=== PATIENT | male | born 1935 | race African-American/Black ===

== ENCOUNTER 2018-05-19 18:07 | Inpatient (IN) | payer MEDICARE, MEDICAID ==
[~2018-05-19] VITALS: Ht 182.9 cm; Wt 64.9 kg
[2018-05-19] MEDS ORDERED: ASPIRIN 81MG TABLET PO ONE (18:45)
[2018-05-19 18:57] LABS: BASOPHILS % 1.2 % (0.0-2.0); EOSINOPHILS % 6.7 % (0.0-5.0); HEMATOCRIT. 38.2 % (42.0-52.0); HEMOGLOBIN. 12.9 g/dL (14.0-18.0); MEAN CORPUSCULAR HEMOGLOBIN 31.6 pg (28.0-32.0); MEAN CORPUSCULAR VOLUME 93.6 fL (80.0-94.0); MONOCYTES % 10.2 % (2.0-8.0); NEUTROPHILS % 41.9 % (40.0-76.0); PLATELET 146 x1000/uL (130-400); RED BLOOD CELL COUNT 4.08 mill/uL (4.7-6.1); RED CELL DISTRIBUTION WIDTH 14.6 % (11.6-14.6)
[2018-05-19 19:03] LABS: CHLORIDE 107 mEq/L (98-107)
[2018-05-19 19:05] LABS: INR 1.6; PARTIAL THROMBOPLASTIN TIME 36.6 sec (23.4-31.0); PROTHROMBIN TIME 15.8 sec (9.6-11.0)
[2018-05-19] MEDS ORDERED: SODIUM CHLORIDE 0.9% 500 ML IV ONE (23:45)
[2018-05-20] MEDS ORDERED: CLONIDINE 0.1MG TABLET PO PRN (04:00)
[2018-05-20 04:59] VITALS: BP 165/108
[2018-05-20 05:07] VITALS: BP 165/108
[2018-05-20] MEDS ORDERED: HYDROCODONE/ACETAMINOPHEN 5/325MG TABLET PO PRN (06:30)
[2018-05-20] MEDS ORDERED: ACETAMINOPHEN 325MG TABLET PO PRN (06:30)
[2018-05-20] MEDS ORDERED: IPRATROPIUM/ALBUTEROL 0.5-3(2.5)MG/3ML NEB INH PRN (06:30)
[2018-05-20] MEDS ORDERED: MAGNESIUM/ALUMINUM HYDROXIDE/SIMETHICONE 30ML UDC PO PRN (06:30)
[2018-05-20] MEDS ORDERED: DOCUSATE SODIUM 100MG CAPSULE PO PRN (06:30)
[2018-05-20] MEDS ORDERED: ONDANSETRON HCL 4MG/2ML INJ IV PRN (06:30)
[2018-05-20] MEDS: AMLODIPINE 5MG TABLET PO SCH (09:45)
[2018-05-20 09:46] LABS: TOTAL IRON BINDING CAPACITY 249 ug/dL (250-450)
[2018-05-20] MEDS: ENOXAPARIN 30MG/0.3ML SYR SUBCUT SCH (10:30)
[2018-05-20] MEDS: PANTOPRAZOLE SODIUM 40 MG/VIAL IV SCH (10:30)
[2018-05-20 12:14] LABS: HEMATOCRIT 34.9 % (42.0-52.0); HEMOGLOBIN 11.6 g/dL (14.0-18.0); MEAN CORPUSCULAR VOLUME 93.2 fL (80.0-94.0); PLATELET 129 x1000/uL (130-400); RED BLOOD CELL COUNT 3.74 mill/uL (4.7-6.1); RED CELL DISTRIBUTION WIDTH 14.8 % (11.6-14.6)
[2018-05-20 12:16] LABS: CHLORIDE 110 mEq/L (98-107)
[2018-05-20] MEDS: HYDRALAZINE HCL 25MG TABLET PO SCH ×2 (13:09→21:56)
[2018-05-20] MEDS: SODIUM CHLORIDE 0.9% 1,000 ML IV SCH (17:39)
[2018-05-20 20:00] VITALS: BP 156/89
[2018-05-20 20:59] VITALS: BP 122/70
[2018-05-20 21:00] VITALS: BP 125/71
[2018-05-21 00:40] VITALS: BP 159/91
[2018-05-21] MEDS: DIPHENHYDRAMINE 50MG/ML VIAL IV PRN ×2 (01:00→21:08)
[2018-05-21] MEDS: CLONIDINE 0.1MG TABLET PO PRN ×2 (01:00→21:08)
[2018-05-21] MEDS: SODIUM CHLORIDE 0.9% 1,000 ML IV SCH ×2 (02:30→21:09)
[2018-05-21 04:00] VITALS: BP 155/81
[2018-05-21] MEDS: HYDRALAZINE HCL 25MG TABLET PO SCH ×3 (06:26→21:08)
[2018-05-21 06:46] LABS: BASOPHILS % 1.3 % (0.0-2.0); EOSINOPHILS % 7.1 % (0.0-5.0); HEMOGLOBIN. 13.1 g/dL (14.0-18.0); MEAN CORPUSCULAR HEMOGLOBIN 31.1 pg (28.0-32.0); MEAN CORPUSCULAR VOLUME 93.1 fL (80.0-94.0); MEAN PLATELET VOLUME 9.1 fl (7.4-10.4); MONOCYTES % 10.3 % (2.0-8.0); NEUTROPHILS % 35.3 % (40.0-76.0); PLATELET 149 x1000/uL (130-400); RED BLOOD CELL COUNT 4.19 mill/uL (4.7-6.1); RED CELL DISTRIBUTION WIDTH 14.8 % (11.6-14.6)
[2018-05-21 07:03] LABS: CHLORIDE 107 mEq/L (98-107)
[2018-05-21 07:17] LABS: LDL CHOLESTEROL 111 mg/dL (5-100)
[2018-05-21 07:19] LABS: PHOSPHORUS 2.7 mg/dL (2.5-4.9)
[2018-05-21 07:20] LABS: HDL CHOLESTEROL 52 mg/dL (40-59)
[2018-05-21 07:52] VITALS: BP 156/89
[2018-05-21] MEDS: AMLODIPINE 5MG TABLET PO SCH (09:37)
[2018-05-21] MEDS: PANTOPRAZOLE SODIUM 40 MG/VIAL IV SCH (09:37)
[2018-05-21] MEDS: ENOXAPARIN 30MG/0.3ML SYR SUBCUT SCH (09:38)
[2018-05-21 11:18] VITALS: BP 141/81
[2018-05-21 15:53] VITALS: BP 183/99
[2018-05-21 17:20] LABS: ETHANOL BLOOD < 10 mg/dL
[2018-05-21 17:26] LABS: T4 FREE 0.89 ng/dL (0.76-1.46)
[2018-05-21 17:37] LABS: FOLIC ACID (FOLATE) SERUM 12.1 ng/mL (>5.38)
[2018-05-21 17:59] LABS: CLARITY URINE CLEAR (CLEAR); COLOR URINE YELLOW (YELLOW); KETONES URINE NEGATIVE (NEGATIVE); LEUKOCYTE ESTERASE URINE NEGATIVE (NEGATIVE); NITRITE URINE NEGATIVE (NEGATIVE); OCCULT BLOOD URINE NEGATIVE (NEGATIVE); PROTEIN URINE NEGATIVE (NEGATIVE); SPECIFIC GRAVITY URINE 1.016 (1.005-1.030); UROBILINOGEN URINE 0.2 E.U./dL (0.2-1.0)
[2018-05-21 18:11] LABS: *AMPHETAMINES SCREEN URINE NEGATIVE (NEGATIVE); *BARBITURATES SCREEN URINE NEGATIVE (NEGATIVE); *BENZODIAZEPINES SCREEN URINE NEGATIVE (NEGATIVE); *COCAINE SCREEN URINE NEGATIVE (NEGATIVE); METHADONE URINE SCREEN NEGATIVE (NEGATIVE); OPIATES URINE SCREEN NEGATIVE (NEGATIVE)
[2018-05-21 18:12] LABS: CANNABINOID URINE SCREEN NEGATIVE (NEGATIVE); PHENCYCLIDINE URINE SCREEN NEGATIVE (NEGATIVE)
[2018-05-21 20:00] VITALS: BP_SYST 130; BP_SYST 149; BP_DIAS 95; BP_DIAS 98
[2018-05-21] MEDS: QUETIAPINE FUMARATE 25MG TABLET PO SCH (21:08)
[2018-05-22 00:29] VITALS: BP 159/102
[2018-05-22 04:00] VITALS: BP 169/109
[2018-05-22] MEDS: HYDRALAZINE HCL 25MG TABLET PO SCH (06:28)
[2018-05-22] MEDS: CLONIDINE 0.1MG TABLET PO PRN (06:28)
[2018-05-22 07:20] LABS: BASOPHILS % 1.1 % (0.0-2.0); EOSINOPHILS % 6.5 % (0.0-5.0); HEMATOCRIT. 38.6 % (42.0-52.0); HEMOGLOBIN. 13.1 g/dL (14.0-18.0); LYMPHOCYTES % 36.4 % (20.0-50.0); MEAN CORPUSCULAR HEMOGLOBIN 31.1 pg (28.0-32.0); MEAN CORPUSCULAR VOLUME 91.9 fL (80.0-94.0); MEAN PLATELET VOLUME 9.2 fl (7.4-10.4); PLATELET 138 x1000/uL (130-400); RED CELL DISTRIBUTION WIDTH 14.3 % (11.6-14.6)
[2018-05-22 08:00] VITALS: BP 142/94
[2018-05-22] MEDS: AMLODIPINE 5MG TABLET PO SCH (08:55)
[2018-05-22] MEDS: QUETIAPINE FUMARATE 25MG TABLET PO SCH (08:56)
[2018-05-22] MEDS ORDERED: ENOXAPARIN 40MG/0.4ML SYR SUBCUT SCH (09:00)
[2018-05-22] MEDS ORDERED: FAMOTIDINE 20MG TABLET PO SCH (09:00)
[2018-05-22 11:48] VITALS: BP 119/75
[2018-05-22 12:01] VITALS: BP 119/75
== END 2018-05-22 15:16 | disposition home health service (06) | DRG 682 ==
LOC: EDBD 18:07 → ER 18:07 → ENRESERV 05-20 03:24 → 6WST 05-20 04:32
PROVIDERS: ADMIT Family Medicine Adult Medicine; ATTEND Family Medicine Adult Medicine
PROC: 4A00X4Z Measurement of Central Nervous Electrical Activity, External Approach (ICD-10-PCS; principal; 2018-05-22)
DX: N17.9 Acute kidney failure, unspecified (principal); G92 Toxic encephalopathy; D68.9 Coagulation defect, unspecified; E44.0 Moderate protein-calorie malnutrition; Z68.1 Body mass index [BMI] 19.9 or less, adult; R07.89 Other chest pain; I48.91 Unspecified atrial fibrillation; D64.9 Anemia, unspecified; E78.00 Pure hypercholesterolemia, unspecified; N18.9 Chronic kidney disease, unspecified; E78.5 Hyperlipidemia, unspecified; F03.90 Unspecified dementia, unspecified severity, without behavioral disturbance, psychotic disturbance, mood disturbance, and anxiety; I12.9 Hypertensive chronic kidney disease with stage 1 through stage 4 chronic kidney disease, or unspecified chronic kidney disease; I25.10 Atherosclerotic heart disease of native coronary artery without angina pectoris; Z82.49 Family history of ischemic heart disease and other diseases of the circulatory system; Z86.73 Personal history of transient ischemic attack (TIA), and cerebral infarction without residual deficits
CPT/HCPCS: 36415; 71045; 80048; 80061; 80305; 80320; 82140; 82607; 82746; 83036; 83540; 83550; 83735; 83880; 84100; 84439; 84443; 84481; 84484; 85027; 87077; 87186; 93005; 93306; 93970; 96360; 96361; 97162; 97166; 99285; C9113; J1200; J1650; J7030; J7040; G0480

== ENCOUNTER 2018-05-22 21:24 | Inpatient (IN) | payer MEDICARE, MEDICAID ==
[~2018-05-22] VITALS: Ht 182.9 cm; Wt 64.6 kg
[2018-05-22 22:49] LABS: CHLORIDE 104 mEq/L (98-107)
[2018-05-22 22:50] LABS: BASOPHILS % 0.7 % (0.0-2.0); EOSINOPHILS % 3.2 % (0.0-5.0); HEMATOCRIT. 38.8 % (42.0-52.0); HEMOGLOBIN. 13.1 g/dL (14.0-18.0); LYMPHOCYTES % 17.1 % (20.0-50.0); MEAN CORPUSCULAR HEMOGLOBIN 31.5 pg (28.0-32.0); MEAN CORPUSCULAR VOLUME 93.3 fL (80.0-94.0); MEAN PLATELET VOLUME 8.8 fl (7.4-10.4); MONOCYTES % 9.5 % (2.0-8.0); NEUTROPHILS % 69.5 % (40.0-76.0); PLATELET 136 x1000/uL (130-400); RED BLOOD CELL COUNT 4.16 mill/uL (4.7-6.1); RED CELL DISTRIBUTION WIDTH 14.8 % (11.6-14.6)
[2018-05-23] VITALS (8 sets, daily range): BP systolic 115–182; BP diastolic 65–103
[2018-05-23] MEDS ORDERED: MAGNESIUM/ALUMINUM HYDROXIDE/SIMETHICONE 30ML UDC PO PRN (00:30)
[2018-05-23] MEDS ORDERED: ENOXAPARIN 40MG/0.4ML SYR SUBCUT SCH (00:30)
[2018-05-23] MEDS ORDERED: ONDANSETRON HCL 4MG/2ML INJ IV PRN (00:30)
[2018-05-23] MEDS ORDERED: HYDROCODONE/ACETAMINOPHEN 5/325MG TABLET PO PRN (00:30)
[2018-05-23] MEDS ORDERED: LEVOFLOXACIN 500MG PREMIX 100 ML IV SCH ×2 (00:30→02:00)
[2018-05-23] MEDS: SODIUM CHLORIDE 0.9% 1,000 ML IV SCH ×2 (02:53→20:22)
[2018-05-23] MEDS: THIAMINE HCL 100MG TABLET PO SCH (08:46)
[2018-05-23] MEDS: FERROUS SULFATE 325MG TABLET PO SCH (08:46)
[2018-05-23] MEDS: ENOXAPARIN 30MG/0.3ML SYR SUBCUT SCH (08:47)
[2018-05-23] MEDS: CLONIDINE 0.1MG TABLET PO PRN ×2 (09:39→21:38)
[2018-05-23 11:59] LABS: BASOPHILS % 1.5 % (0.0-2.0); HEMATOCRIT. 38.3 % (42.0-52.0); HEMOGLOBIN. 12.9 g/dL (14.0-18.0); LYMPHOCYTES % 25.7 % (20.0-50.0); MEAN CORPUSCULAR HEMOGLOBIN 31.6 pg (28.0-32.0); MEAN CORPUSCULAR VOLUME 93.6 fL (80.0-94.0); MEAN PLATELET VOLUME 9.7 fl (7.4-10.4); MONOCYTES % 8.5 % (2.0-8.0); NEUTROPHILS % 57.3 % (40.0-76.0); PLATELET 130 x1000/uL (130-400); RED CELL DISTRIBUTION WIDTH 14.9 % (11.6-14.6)
[2018-05-23 17:29] LABS: CLARITY URINE CLEAR (CLEAR); COLOR URINE YELLOW (YELLOW); KETONES URINE NEGATIVE (NEGATIVE); LEUKOCYTE ESTERASE URINE NEGATIVE (NEGATIVE); NITRITE URINE NEGATIVE (NEGATIVE); OCCULT BLOOD URINE NEGATIVE (NEGATIVE); PH URINE 5.5 (4.5-8.0); PROTEIN URINE TRACE (NEGATIVE); SPECIFIC GRAVITY URINE 1.023 (1.005-1.030)
[2018-05-23] MEDS: LEVOFLOXACIN 250MG PREMIX 50 ML IV SCH (20:21)
[2018-05-24] VITALS (7 sets, daily range): BP systolic 108–173; BP diastolic 60–93
[2018-05-24 06:04] LABS: EOSINOPHILS % 5.1 % (0.0-5.0); HEMATOCRIT. 37.6 % (42.0-52.0); HEMOGLOBIN. 12.9 g/dL (14.0-18.0); LYMPHOCYTES % 23.5 % (20.0-50.0); MEAN CORPUSCULAR HEMOGLOBIN 31.9 pg (28.0-32.0); MEAN CORPUSCULAR VOLUME 92.8 fL (80.0-94.0); MEAN PLATELET VOLUME 9.2 fl (7.4-10.4); MONOCYTES % 10.9 % (2.0-8.0); NEUTROPHILS % 59.5 % (40.0-76.0); PLATELET 133 x1000/uL (130-400); RED BLOOD CELL COUNT 4.05 mill/uL (4.7-6.1); RED CELL DISTRIBUTION WIDTH 14.4 % (11.6-14.6)
[2018-05-24 06:39] LABS: PHOSPHORUS 2.2 mg/dL (2.5-4.9)
[2018-05-24] MEDS: ENOXAPARIN 30MG/0.3ML SYR SUBCUT SCH (09:44)
[2018-05-24] MEDS: THIAMINE HCL 100MG TABLET PO SCH (09:44)
[2018-05-24] MEDS: FERROUS SULFATE 325MG TABLET PO SCH (09:44)
[2018-05-24] MEDS: SODIUM CHLORIDE 0.9% 1,000 ML IV SCH (09:45)
[2018-05-24] MEDS: HALOPERIDOL LACTATE 5MG/ML VIAL IM PRN (10:29)
[2018-05-24] MEDS: CLONIDINE 0.1MG TABLET PO PRN (17:13)
[2018-05-24] MEDS: QUETIAPINE FUMARATE 25MG TABLET PO SCH (20:36)
[2018-05-24] MEDS: LEVOFLOXACIN 250MG PREMIX 50 ML IV SCH (20:36)
[2018-05-25] VITALS: BP 138/76
[2018-05-25 04:00] VITALS: BP 142/79
[2018-05-25 07:58] VITALS: BP 145/85
[2018-05-25] MEDS: ENOXAPARIN 40MG/0.4ML SYR SUBCUT SCH (09:16)
[2018-05-25] MEDS: FERROUS SULFATE 325MG TABLET PO SCH (09:16)
[2018-05-25] MEDS: QUETIAPINE FUMARATE 25MG TABLET PO SCH ×2 (09:16→20:27)
[2018-05-25] MEDS: THIAMINE HCL 100MG TABLET PO SCH (09:16)
[2018-05-25] MEDS: HALOPERIDOL LACTATE 5MG/ML VIAL IM PRN (11:15)
[2018-05-25 11:41] VITALS: BP 117/70
[2018-05-25 16:02] VITALS: BP 128/71
[2018-05-25 20:00] VITALS: BP 132/83
[2018-05-25] MEDS: LEVOFLOXACIN 250MG PREMIX 50 ML IV SCH (20:27)
[2018-05-26] VITALS: BP 163/93
[2018-05-26] MEDS: CLONIDINE 0.1MG TABLET PO PRN ×2 (00:07→18:05)
[2018-05-26 04:00] VITALS: BP 173/103
[2018-05-26 06:53] LABS: HEMATOCRIT. 34.9 % (42.0-52.0); HEMOGLOBIN. 11.8 g/dL (14.0-18.0); MEAN CORPUSCULAR HEMOGLOBIN 31.4 pg (28.0-32.0); MEAN CORPUSCULAR VOLUME 92.9 fL (80.0-94.0); MEAN PLATELET VOLUME 9.2 fl (7.4-10.4); PLATELET 124 x1000/uL (130-400); RED BLOOD CELL COUNT 3.76 mill/uL (4.7-6.1); RED CELL DISTRIBUTION WIDTH 14.2 % (11.6-14.6)
[2018-05-26 07:41] LABS: PHOSPHORUS 2.7 mg/dL (2.5-4.9)
[2018-05-26 08:00] VITALS: BP 151/95
[2018-05-26] MEDS: FERROUS SULFATE 325MG TABLET PO SCH (08:57)
[2018-05-26] MEDS: THIAMINE HCL 100MG TABLET PO SCH (08:57)
[2018-05-26] MEDS: QUETIAPINE FUMARATE 25MG TABLET PO SCH ×2 (08:57→20:45)
[2018-05-26] MEDS: ENOXAPARIN 40MG/0.4ML SYR SUBCUT SCH (08:58)
[2018-05-26 10:18] LABS: PLATELET ESTIMATE NORMAL
[2018-05-26 12:00] VITALS: BP 154/99
[2018-05-26 16:00] VITALS: BP 166/97
[2018-05-26 20:00] VITALS: BP 143/68
[2018-05-26] MEDS: LEVOFLOXACIN 250MG PREMIX 50 ML IV SCH (20:45)
[2018-05-27] VITALS: BP 141/57
[2018-05-27 04:00] VITALS: BP 139/61
[2018-05-27 08:00] VITALS: BP 147/82
[2018-05-27] MEDS: QUETIAPINE FUMARATE 25MG TABLET PO SCH ×2 (09:23→20:07)
[2018-05-27] MEDS: THIAMINE HCL 100MG TABLET PO SCH (09:23)
[2018-05-27] MEDS: ENOXAPARIN 40MG/0.4ML SYR SUBCUT SCH (09:23)
[2018-05-27] MEDS: FERROUS SULFATE 325MG TABLET PO SCH (09:23)
[2018-05-27 11:46] VITALS: BP 111/60
[2018-05-27 16:00] VITALS: BP 160/88
[2018-05-27] MEDS: ACETAMINOPHEN 325MG TABLET PO PRN (17:34)
[2018-05-27 20:00] VITALS: BP 140/58
[2018-05-27] MEDS: LEVOFLOXACIN 250MG TABLET PO SCH (20:07)
[2018-05-27] MEDS: HALOPERIDOL LACTATE 5MG/ML VIAL IM PRN (22:48)
[2018-05-28] VITALS: BP 162/93
[2018-05-28] MEDS: ACETAMINOPHEN 325MG TABLET PO PRN (00:23)
[2018-05-28] MEDS: CLONIDINE 0.1MG TABLET PO PRN (00:24)
[2018-05-28 04:00] VITALS: BP 124/71
[2018-05-28 08:00] VITALS: BP 107/69
[2018-05-28] MEDS: THIAMINE HCL 100MG TABLET PO SCH (08:51)
[2018-05-28] MEDS: QUETIAPINE FUMARATE 25MG TABLET PO SCH ×2 (08:51→21:17)
[2018-05-28] MEDS: ENOXAPARIN 40MG/0.4ML SYR SUBCUT SCH (08:51)
[2018-05-28] MEDS: FERROUS SULFATE 325MG TABLET PO SCH (08:51)
[2018-05-28 12:00] VITALS: BP 116/63
[2018-05-28 16:00] VITALS: BP 131/7
[2018-05-28 20:00] VITALS: BP 147/81
[2018-05-28] MEDS: LEVOFLOXACIN 250MG TABLET PO SCH (21:17)
[2018-05-29 00:07] VITALS: BP 111/69
[2018-05-29 03:30] VITALS: BP 141/96
[2018-05-29] MEDS: CLONIDINE 0.1MG TABLET PO PRN (04:00)
[2018-05-29] MEDS: HALOPERIDOL LACTATE 5MG/ML VIAL IM PRN (04:00)
[2018-05-29 06:04] LABS: BASOPHILS % 0.7 % (0.0-2.0); EOSINOPHILS % 3.4 % (0.0-5.0); HEMATOCRIT. 35.2 % (42.0-52.0); LYMPHOCYTES % 17.6 % (20.0-50.0); MEAN CORPUSCULAR HEMOGLOBIN 31.8 pg (28.0-32.0); MEAN CORPUSCULAR VOLUME 93.1 fL (80.0-94.0); MEAN PLATELET VOLUME 9.5 fl (7.4-10.4); MONOCYTES % 14.5 % (2.0-8.0); NEUTROPHILS % 63.8 % (40.0-76.0); PLATELET 143 x1000/uL (130-400); RED BLOOD CELL COUNT 3.78 mill/uL (4.7-6.1); RED CELL DISTRIBUTION WIDTH 14.2 % (11.6-14.6)
[2018-05-29 07:59] LABS: PHOSPHORUS 2.8 mg/dL (2.5-4.9)
[2018-05-29] MEDS: ENOXAPARIN 40MG/0.4ML SYR SUBCUT SCH (09:00)
[2018-05-29] MEDS: FERROUS SULFATE 325MG TABLET PO SCH (09:11)
[2018-05-29] MEDS: QUETIAPINE FUMARATE 25MG TABLET PO SCH ×2 (09:11→21:13)
[2018-05-29] MEDS: THIAMINE HCL 100MG TABLET PO SCH (09:11)
[2018-05-29 18:12] VITALS: BP 126/73
[2018-05-29] MEDS: LEVOFLOXACIN 250MG TABLET PO SCH (21:13)
[2018-05-30 14:08] LABS: *HIV-1 RNA BY PCR <20 copies/mL (.)
== END 2018-05-29 21:40 | DRG 91 ==
LOC: ER 21:24 → 5WST 23:38 → EDBEDREQ 23:41 → EDBEDREQTM 23:41 → ENRESERV 23:57
PROVIDERS: ADMIT Internal Medicine Nephrology; ATTEND Internal Medicine Nephrology
DX: G92 Toxic encephalopathy (principal); N17.0 Acute kidney failure with tubular necrosis; E44.1 Mild protein-calorie malnutrition; Z68.1 Body mass index [BMI] 19.9 or less, adult; I48.91 Unspecified atrial fibrillation; F03.90 Unspecified dementia, unspecified severity, without behavioral disturbance, psychotic disturbance, mood disturbance, and anxiety; D63.1 Anemia in chronic kidney disease; I12.9 Hypertensive chronic kidney disease with stage 1 through stage 4 chronic kidney disease, or unspecified chronic kidney disease; K72.90 Hepatic failure, unspecified without coma; E78.00 Pure hypercholesterolemia, unspecified; N18.3 Chronic kidney disease, stage 3 (moderate); Z78.1 Physical restraint status; Z86.73 Personal history of transient ischemic attack (TIA), and cerebral infarction without residual deficits
CPT/HCPCS: 36415; 70551; 71045; 80048; 80076; 82140; 83520; 83735; 83880; 84100; 84153; 84484; 86592; 87536; 93005; 93306; 93880; 97116; 97162; 97530; 99285; J1630; J1650; J1956; G0103

== ENCOUNTER 2018-08-15 18:34 | Emergency (ER) | payer MEDICARE, MEDICAID ==
[~2018-08-15] VITALS: Ht 167.6 cm; Wt 67.0 kg
[2018-08-15] MEDS ORDERED: ACETAMINOPHEN 500MG TABLET PO ONE (23:15)
[2018-08-16 00:57] LABS: BASOPHILS % 1.3 % (0.0-2.0); EOSINOPHILS % 7.3 % (0.0-5.0); HEMATOCRIT. 35.5 % (42.0-52.0); HEMOGLOBIN. 12.2 g/dL (14.0-18.0); LYMPHOCYTES % 31.9 % (20.0-50.0); MEAN CORPUSCULAR HEMOGLOBIN 31.9 pg (28.0-32.0); MEAN CORPUSCULAR VOLUME 93.2 fL (80.0-94.0); MONOCYTES % 11.8 % (2.0-8.0); NEUTROPHILS % 47.7 % (40.0-76.0); PLATELET 138 x1000/uL (130-400); RED BLOOD CELL COUNT 3.81 mill/uL (4.7-6.1); RED CELL DISTRIBUTION WIDTH 15.7 % (11.6-14.6)
[2018-08-16] MEDS ORDERED: HYDROCODONE/ACETAMINOPHEN 5/325MG TABLET PO ONE (01:00)
[2018-08-16 01:05] LABS: CHLORIDE 111 mEq/L (98-107); PROTHROMBIN TIME 10.6 sec (9.6-11.0)
[2018-08-16] MEDS ORDERED: HYDRALAZINE 20MG/ML VIAL IV ONE (03:30)
[2018-08-16 05:45] VITALS: BP 144/87
== END 2018-08-16 06:00 | disposition home or self-care (01) ==
LOC: ER 18:34 → EDBD 18:34 → ER 08-16 06:00
DX: R07.81 Pleurodynia (principal); I10 Essential (primary) hypertension
CPT/HCPCS: 36415; 70450; 71101; 74176; 80053; 83690; 85025; 85610; 96374; 99284; J0360

== ENCOUNTER 2019-03-08 18:58 | Emergency (ER) | payer MEDICARE, MEDICAID ==
[~2019-03-08] VITALS: Ht 182.9 cm; Wt 68.0 kg
[2019-03-08 21:34] VITALS: BP 126/89
== END 2019-03-08 21:36 | disposition home or self-care (01) ==
LOC: ER 19:16
DX: R45.1 Restlessness and agitation (principal); I12.9 Hypertensive chronic kidney disease with stage 1 through stage 4 chronic kidney disease, or unspecified chronic kidney disease; N18.9 Chronic kidney disease, unspecified; F03.90 Unspecified dementia, unspecified severity, without behavioral disturbance, psychotic disturbance, mood disturbance, and anxiety; I69.351 Hemiplegia and hemiparesis following cerebral infarction affecting right dominant side
CPT/HCPCS: 99283

== ENCOUNTER 2019-05-13 15:06 | Inpatient (IN) | payer MEDICARE, MEDICAID ==
[~2019-05-13] VITALS: Ht 182.9 cm; Wt 72.3 kg
[2019-05-13] MEDS ORDERED: AMLO10TA80 PO (15:19)
[2019-05-13] MEDS ORDERED: NA P230E RC (15:19)
[2019-05-13] MEDS ORDERED: MOM PO (15:19)
[2019-05-13] MEDS ORDERED: BISA-81 PO (15:19)
[2019-05-13] MEDS ORDERED: LATA2.5D2 EACHEYE (15:19)
[2019-05-13] MEDS ORDERED: CLON-457 PO (15:19)
[2019-05-13] MEDS ORDERED: ATOR40TA70 PO (15:19)
[2019-05-13] MEDS ORDERED: SODIUM CHLORIDE 0.9% 500 ML IV ONE (15:30)
[2019-05-13 15:42] LABS: BASOPHILS % 1.3 % (0.0-2.0); EOSINOPHILS % 8.4 % (0.0-5.0); HEMATOCRIT. 35.6 % (42.0-52.0); HEMOGLOBIN. 12.1 g/dL (14.0-18.0); LYMPHOCYTES % 32.2 % (20.0-50.0); MEAN CORPUSCULAR HEMOGLOBIN 31.3 pg (28.0-32.0); MEAN PLATELET VOLUME 8.1 fl (7.4-10.4); MONOCYTES % 10.2 % (2.0-8.0); NEUTROPHILS % 47.9 % (40.0-76.0); PLATELET 160 x1000/uL (130-400); RED BLOOD CELL COUNT 3.86 mill/uL (4.7-6.1); RED CELL DISTRIBUTION WIDTH 15.4 % (11.6-14.6)
[2019-05-13 15:45] LABS: CHLORIDE 109 mEq/L (98-107)
[2019-05-13 15:48] LABS: ETHANOL BLOOD < 10 mg/dL
[2019-05-13 19:01] LABS: CLARITY URINE CLEAR (CLEAR); COLOR URINE YELLOW (YELLOW); KETONES URINE NEGATIVE (NEGATIVE); LEUKOCYTE ESTERASE URINE NEGATIVE (NEGATIVE); NITRITE URINE NEGATIVE (NEGATIVE); OCCULT BLOOD URINE NEGATIVE (NEGATIVE); PROTEIN URINE TRACE (NEGATIVE); SPECIFIC GRAVITY URINE 1.023 (1.005-1.030); UROBILINOGEN URINE 0.2 E.U./dL (0.2-1.0)
[2019-05-13 19:17] LABS: METHADONE URINE SCREEN NEGATIVE (NEGATIVE); OPIATES URINE SCREEN NEGATIVE (NEGATIVE); PHENCYCLIDINE URINE SCREEN NEGATIVE (NEGATIVE)
[2019-05-13 19:18] LABS: *AMPHETAMINES SCREEN URINE NEGATIVE (NEGATIVE); *BARBITURATES SCREEN URINE NEGATIVE (NEGATIVE); *BENZODIAZEPINES SCREEN URINE NEGATIVE (NEGATIVE); *COCAINE SCREEN URINE NEGATIVE (NEGATIVE); CANNABINOID URINE SCREEN NEGATIVE (NEGATIVE)
[2019-05-13] MEDS ORDERED: RISPERIDONE 1MG TABLET PO SCH (19:30)
[2019-05-13] MEDS ORDERED: ASPIRIN 325MG EC TABLET PO ONE (19:30)
[2019-05-13 22:00] VITALS: BP 146/79
[2019-05-13] MEDS ORDERED: CEFTRIAXONE 1 G PREMIX 50 ML IV SCH (23:00)
[2019-05-13] MEDS ORDERED: ACETAMINOPHEN 650MG/20.3ML UDC GT PRN (23:00)
[2019-05-13] MEDS ORDERED: ONDANSETRON HCL 4MG/2ML INJ IV PRN (23:00)
[2019-05-13] MEDS ORDERED: HYDROCODONE/ACETAMINOPHEN 5/325MG TABLET PO PRN (23:00)
[2019-05-13] MEDS ORDERED: MORPHINE SULFATE 2 MG/ML CPJ (NOT FOR IM USE) IV PRN (23:00)
[2019-05-14] VITALS: BP 145/96
[2019-05-14] MEDS: SODIUM CHLORIDE 0.9% 1,000 ML IV SCH ×3 (00:01→20:55)
[2019-05-14] MEDS ORDERED: CEFTRIAXONE 1 G PREMIX 50 ML IV SCH (01:00)
[2019-05-14 04:00] VITALS: BP 127/76
[2019-05-14 07:01] LABS: EOSINOPHILS % 8.1 % (0.0-5.0); HEMATOCRIT. 34.8 % (42.0-52.0); HEMOGLOBIN. 12.1 g/dL (14.0-18.0); LYMPHOCYTES % 37.9 % (20.0-50.0); MEAN CORPUSCULAR HEMOGLOBIN 31.6 pg (28.0-32.0); MEAN CORPUSCULAR VOLUME 91.4 fL (80.0-94.0); MEAN PLATELET VOLUME 8.5 fl (7.4-10.4); MONOCYTES % 14.5 % (2.0-8.0); NEUTROPHILS % 38.5 % (40.0-76.0); PLATELET 149 x1000/uL (130-400); RED BLOOD CELL COUNT 3.81 mill/uL (4.7-6.1); RED CELL DISTRIBUTION WIDTH 14.8 % (11.6-14.6)
[2019-05-14 07:09] LABS: CHLORIDE 107 mEq/L (98-107)
[2019-05-14 07:15] LABS: PHOSPHORUS 2.5 mg/dL (2.5-4.9)
[2019-05-14 08:32] VITALS: BP 131/83
[2019-05-14] MEDS: ENOXAPARIN 40MG/0.4ML SYR SUBCUT SCH (08:52)
[2019-05-14] MEDS ORDERED: POTASSIUM CHLORIDE 20MEQ TABLET SR PO SCH (09:30)
[2019-05-14 11:47] VITALS: BP 115/74
[2019-05-14 15:43] VITALS: BP 146/85
[2019-05-14 20:00] VITALS: BP 95/71
[2019-05-14] MEDS: LORAZEPAM 2MG/ML CPJ IV PRN (21:51)
[2019-05-15] VITALS: BP_SYST 151; BP_SYST 176; BP_DIAS 75; BP_DIAS 95
[2019-05-15] MEDS: LORAZEPAM 2MG/ML CPJ IV PRN ×4 (01:50→23:25)
[2019-05-15 04:00] VITALS: BP 163/95
[2019-05-15] MEDS: SODIUM CHLORIDE 0.9% 1,000 ML IV SCH ×2 (05:44→17:01)
[2019-05-15 07:37] LABS: CHLORIDE 103 mEq/L (98-107)
[2019-05-15 08:00] VITALS: BP 127/77
[2019-05-15] MEDS: ENOXAPARIN 40MG/0.4ML SYR SUBCUT SCH (09:59)
[2019-05-15 12:00] VITALS: BP 137/89
[2019-05-15 16:00] VITALS: BP 140/88
[2019-05-15 20:00] VITALS: BP 146/91
[2019-05-16] VITALS: BP 144/74
[2019-05-16] MEDS: SODIUM CHLORIDE 0.9% 1,000 ML IV SCH ×3 (02:15→21:57)
[2019-05-16 04:00] VITALS: BP 154/80
[2019-05-16 08:00] VITALS: BP 137/91
[2019-05-16] MEDS: ENOXAPARIN 40MG/0.4ML SYR SUBCUT SCH (08:59)
[2019-05-16 12:00] VITALS: BP 152/89
[2019-05-16] MEDS: LORAZEPAM 2MG/ML CPJ IV PRN ×2 (14:04→21:57)
[2019-05-16] MEDS: RISPERIDONE 0.5MG TABLET PO SCH (14:46)
[2019-05-16 16:00] VITALS: BP 169/74
[2019-05-16 20:00] VITALS: BP 158/98
[2019-05-17] VITALS: BP 153/86
[2019-05-17 04:00] VITALS: BP 143/97
[2019-05-17] MEDS: LORAZEPAM 2MG/ML CPJ IV PRN ×3 (04:21→23:19)
[2019-05-17] MEDS: SODIUM CHLORIDE 0.9% 1,000 ML IV SCH (06:02)
[2019-05-17 08:40] VITALS: BP 160/93
[2019-05-17] MEDS: ENOXAPARIN 40MG/0.4ML SYR SUBCUT SCH (09:08)
[2019-05-17] MEDS: RISPERIDONE 0.5MG TABLET PO SCH ×3 (09:08→17:00)
[2019-05-17] MEDS: AMLODIPINE 5MG TABLET PO SCH (11:54)
[2019-05-17 12:18] VITALS: BP 150/88
[2019-05-17 16:14] VITALS: BP 128/82
[2019-05-17] MEDS: DEXT 5%/0.45% NACL 1000ML 1,000 ML IV SCH (18:04)
[2019-05-17 20:00] VITALS: BP 149/87
[2019-05-18] VITALS: BP 149/80
[2019-05-18] MEDS: DEXT 5%/0.45% NACL 1000ML 1,000 ML IV SCH ×2 (04:32→17:23)
[2019-05-18 04:46] VITALS: BP 159/99
[2019-05-18 08:00] VITALS: BP 151/95
[2019-05-18] MEDS: RISPERIDONE 0.5MG TABLET PO SCH ×2 (09:00→17:22)
[2019-05-18] MEDS: AMLODIPINE 5MG TABLET PO SCH (09:00)
[2019-05-18] MEDS: ENOXAPARIN 40MG/0.4ML SYR SUBCUT SCH (09:44)
[2019-05-18 16:00] VITALS: BP 152/89
[2019-05-18 20:00] VITALS: BP 113/73
[2019-05-18] MEDS: LORAZEPAM 2MG/ML CPJ IV PRN ×2 (20:01→22:20)
[2019-05-18] MEDS: PANTOPRAZOLE SODIUM 40 MG/VIAL IV SCH (21:48)
[2019-05-19] VITALS: BP_SYST 153; BP_SYST 173; BP_DIAS 107; BP_DIAS 97
[2019-05-19] MEDS: LORAZEPAM 2MG/ML CPJ IV PRN (00:51)
[2019-05-19 04:00] VITALS: BP 175/100
[2019-05-19 06:13] LABS: PARTIAL THROMBOPLASTIN TIME 31.9 sec (23.4-31.0); PROTHROMBIN TIME 10.8 sec (9.6-11.0)
[2019-05-19 06:22] LABS: CHLORIDE 104 mEq/L (98-107); HEMATOCRIT. 40.3 % (42.0-52.0); HEMOGLOBIN. 13.8 g/dL (14.0-18.0); MEAN CORPUSCULAR HEMOGLOBIN 30.9 pg (28.0-32.0); MEAN CORPUSCULAR VOLUME 90.7 fL (80.0-94.0); MEAN PLATELET VOLUME 8.9 fl (7.4-10.4); PLATELET 135 x1000/uL (130-400); RED BLOOD CELL COUNT 4.45 mill/uL (4.7-6.1)
[2019-05-19 06:30] LABS: PHOSPHORUS 3.3 mg/dL (2.5-4.9)
[2019-05-19 06:50] LABS: VITAMIN B12 SERUM 1075 pg/mL (211-911)
[2019-05-19 08:00] VITALS: BP 160/91
[2019-05-19 08:49] LABS: PLATELET ESTIMATE NORMAL
[2019-05-19] MEDS: AMLODIPINE 5MG TABLET PO SCH (09:00)
[2019-05-19] MEDS: RISPERIDONE 0.5MG TABLET PO SCH ×2 (09:00→18:54)
[2019-05-19] MEDS ORDERED: CEFAZOLIN 1000MG PREMIX 50 ML IV NR (10:00)
[2019-05-19] MEDS: PANTOPRAZOLE SODIUM 40 MG/VIAL IV SCH ×2 (10:04→16:37)
[2019-05-19 12:00] VITALS: BP 132/85
[2019-05-19] MEDS ORDERED: FENTANYL CITRATE/PF 50MCG/ML 2ML VIAL ONE (12:36)
[2019-05-19] MEDS ORDERED: MIDAZOLAM HCL 5 MG/5 ML VIAL ONE (12:36)
[2019-05-19] MEDS ORDERED: HYDRALAZINE 20MG/ML VIAL IV PRN (12:45)
[2019-05-19] MEDS: DEXT 5%/0.45% NACL 1000ML 1,000 ML IV SCH ×2 (16:37→23:30)
[2019-05-19 20:00] VITALS: BP 146/69
[2019-05-20] VITALS: BP 130/75
[2019-05-20 04:00] VITALS: BP 124/72
[2019-05-20 06:09] LABS: BASOPHILS % 0.3 % (0.0-2.0); HEMATOCRIT. 36.8 % (42.0-52.0); HEMOGLOBIN. 12.4 g/dL (14.0-18.0); LYMPHOCYTES % 21.9 % (20.0-50.0); MEAN CORPUSCULAR HEMOGLOBIN 30.7 pg (28.0-32.0); MEAN CORPUSCULAR VOLUME 90.7 fL (80.0-94.0); MEAN PLATELET VOLUME 8.9 fl (7.4-10.4); MONOCYTES % 11.1 % (2.0-8.0); NEUTROPHILS % 65.7 % (40.0-76.0); PLATELET 121 x1000/uL (130-400); RED BLOOD CELL COUNT 4.06 mill/uL (4.7-6.1); RED CELL DISTRIBUTION WIDTH 14.7 % (11.6-14.6)
[2019-05-20] MEDS: METOCLOPRAMIDE HCL 10MG/2ML VIAL IV SCH ×3 (06:39→17:18)
[2019-05-20 08:00] VITALS: BP 149/75
[2019-05-20] MEDS: PANTOPRAZOLE SODIUM 40 MG/VIAL IV SCH (08:47)
[2019-05-20] MEDS: AMLODIPINE 5MG TABLET PO SCH (09:00)
[2019-05-20] MEDS ORDERED: FAMOTIDINE 20MG/2ML VIAL IV SCH (09:00)
[2019-05-20] MEDS: RISPERIDONE 0.5MG TABLET PO SCH ×2 (09:00→17:18)
[2019-05-20] MEDS: DEXT 5%/0.45% NACL 1000ML 1,000 ML IV SCH (09:30)
[2019-05-20 12:00] VITALS: BP 140/80
[2019-05-20 15:55] VITALS: BP 147/84
[2019-05-20 16:00] VITALS: BP 147/84
[2019-05-21] MEDS ORDERED: ENOXAPARIN 30MG/0.3ML SYR SUBCUT SCH (09:00)
== END 2019-05-20 18:40 | DRG 683 ==
LOC: ER 15:06 → 5WST 18:42 → ENRESERV 20:07
PROVIDERS: ADMIT Internal Medicine Nephrology; ATTEND Internal Medicine Nephrology
PROC: 0DB68ZX Excision of Stomach, Via Natural or Artificial Opening Endoscopic, Diagnostic (ICD-10-PCS; principal; 2019-05-19)
PROC: 0DB98ZX Excision of Duodenum, Via Natural or Artificial Opening Endoscopic, Diagnostic (ICD-10-PCS; 2019-05-19)
PROC: 0DH63UZ Insertion of Feeding Device into Stomach, Percutaneous Approach (ICD-10-PCS; 2019-05-19)
PROC: 4A00X4Z Measurement of Central Nervous Electrical Activity, External Approach (ICD-10-PCS; 2019-05-19)
DX: N17.0 Acute kidney failure with tubular necrosis (principal); E44.1 Mild protein-calorie malnutrition; F03.91 Unspecified dementia, unspecified severity, with behavioral disturbance; G93.40 Encephalopathy, unspecified; I12.9 Hypertensive chronic kidney disease with stage 1 through stage 4 chronic kidney disease, or unspecified chronic kidney disease; J44.9 Chronic obstructive pulmonary disease, unspecified; D64.9 Anemia, unspecified; K29.40 Chronic atrophic gastritis without bleeding; R62.7 Adult failure to thrive; E87.8 Other disorders of electrolyte and fluid balance, not elsewhere classified; N18.9 Chronic kidney disease, unspecified; E78.5 Hyperlipidemia, unspecified; I69.30 Unspecified sequelae of cerebral infarction; Z91.83 Wandering in diseases classified elsewhere; Z68.21 Body mass index [BMI] 21.0-21.9, adult; Z79.899 Other long term (current) drug therapy
CPT/HCPCS: 36415; 71045; 80048; 80053; 80305; 80320; 81003; 82140; 82607; 83735; 83880; 84100; 84443; 84484; 85025; 88305; 88312; 88313; 92610; 93005; 95816; 97162; 99152; 99285; C9113; J0690; J0696; J1650; J2060; J2250; J2405; J2765; J3010; J3490; J7030; J7040; G0480; G0500